=== PATIENT | male | born 1985 | race Caucasian/White ===

== ENCOUNTER 2018-04-29 17:35 | Emergency (ER) | payer OTHER ==
[~2018-04-29] VITALS: Ht 177.8 cm; Wt 95.0 kg
[2018-04-29 17:42] VITALS: BP 123/80
[2018-04-29] MEDS ORDERED: BUPIVACAINE 0.25% INFIL ONE (18:00)
[2018-04-29] MEDS ORDERED: BUPIVACAINE 0.25% ONE (18:15)
[2018-04-29] MEDS ORDERED: MICROFIBRILLAR COLLAGEN 1 GM TP ONE ×2 (19:10→20:00)
== END 2018-04-29 19:41 | disposition home or self-care (01) ==
LOC: ED 19:10
DX: S61.012A Laceration without foreign body of left thumb without damage to nail, initial encounter (principal); W27.0XXA Contact with workbench tool, initial encounter; Y93.89 Activity, other specified; Y92.098 Other place in other non-institutional residence as the place of occurrence of the external cause; Y99.8 Other external cause status
CPT/HCPCS: 12041; 99284